=== PATIENT | male | born 2000 | race Hispanic/Latino ===

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

== ENCOUNTER 2020-07-24 21:40 | Emergency (ER) | payer SELFPAY | END 2020-07-24 22:15 | disposition home or self-care (01) | LOC: ERS 21:40 | DX: H60.92 Unspecified otitis externa, left ear (principal); F17.290 Nicotine dependence, other tobacco product, uncomplicated | CPT/HCPCS: 99282 ==